=== PATIENT | female | born 2000 | race African-American/Black ===

== ENCOUNTER 2020-08-19 22:09 | Inpatient (IN) | payer OTHER, SELFPAY ==
--- NOTE | 2020-08-19 22:13 | ED.PSYCH ---
HPI - Psych General Chief Complaint: Psychiatric Symptoms Stated Complaint: ? crisis Time Seen by Provider: 08/19/20 22:13 Source: patient and EMS Mode of arrival: EMS Limitations: no limitations History of Present Illness MD complaint: suicidal ideation and feels depressed Onset (ago): week(s) Duration: constant History of same: Yes Relieving factors: none Exacerbating factors: none Context: significant life stressor Associated psychiatric symptoms: depression and suicidal ideation Associated symptoms: denies other symptoms Treatments prior to arrival: none If self harm: admits thoughts of self harm, has plan, has acted on plan and intentional overdose (took a handful of ES tylenol just [employer] did throw up some, mom and patient called 911 ) Related Data Allergies Allergy/AdvReac Type Severity Reaction Status Date / Time nut - unspecified [NUTS] Allergy Unknown SWELLING Unverified 04/12/20 19:02 Review of Systems Review of Systems: Constitutional : No Fever, No Chills ENT/Mouth : No Ear Pain, No Nasal Congestion, No sore throat Eyes: No Eye Pain, No Swelling, No Redness Cardiovascular : No Chest Pain, No SOB Respiratory : No Cough, No Sputum, No Dyspnea Gastrointestinal : No Nausea, No Vomiting, No Diarrhea, No Hematochezia, No Melena Genitourinary : No Dysuria, No Urinary Frequency, No Hematuria Musculoskeletal : No Myalgias Skin : No Skin Lesions, No rash Neuro : No Weakness, No Numbness, No Paresthesias, No Dizziness, No Headache Psych : positive Anxiety, positive Depression, positive SI no HI Heme/Lymph: No Lymphadenopathy Endocrine : No Polyuria, No Polydipsia All other systems reviewed and are negative [facility] Past Medical History Attestation statement: The following information was validated with the patient. Medical History Asthma Depression Social History Social History (Updated 08/19/20 @ 22:18 by Yolanda Braswell DO) Smoking Status: Never smoker Use of substances other than those prescribed or required for medical reasons: No Advance Directives: No Advance Directives Information Provided: No Physical Exam Vital Signs: Vital Signs: Last Vital Signs Temp 97.9 F 08/20/20 06:00 Pulse 80 08/20/20 06:00 Resp 16 08/20/20 06:00 BP 105/67 08/20/20 06:00 Pulse Ox 99 08/20/20 06:00 Body Mass Index 37.8 Appearance: Alert. Oriented X3. No acute distress. Flat affect Eyes: Pupils equal, round and reactive to light. ENT: Pharynx normal. Neck: Normal inspection. Neck supple. CVS: Normal heart rate and rhythm. Pulses normal. Respiratory: No respiratory distress. Breath sounds normal. Abdomen: Soft and nontender. Skin: Skin warm and dry. Normal skin color. Normal skin turgor. Extremities: No lower extremity edema. No calf ttp Neuro: Oriented X 3. No motor deficit. No sensory deficit. CN 2-12 intact Psych: + depresion, + SI Course Course Course Narrative: tylenol is under toxic range, RN had spoken to poison control - recommend 8 hr level, 6 am APAP and LFTs ordered LFTs fine but APAP in toxic range, will start on NAC protocol will need admission for NAC protocol I spoke to poison control and also her level is toxic on nomogram 2 hours prior to stopping protocol APAP level, LFTs, coags MDM - Psych MDM Narrative Medical decision making narrative: 20 yo female with depression, SI took a handful of ES tylenol prior to arrival, did drink milk and vomited, will need labs, tylenol x 2 next test at 2am, charcoal ordered, onced medically cleared (suspect low toxicity from ingestion was a handful and one time ingestion) will consult N after repeat APAP Lab Data Result diagrams: 08/19/20 22:54 08/19/20 22:54 Labs: Lab Results 08/19/20 08/19/20 08/19/20 Range/Units 22:54 22:54 22:54 WBC 11.0 H (4.8-10.8) X10*3/uL RBC 4.45 (4.20-5.50) X10*6/uL Hgb 12.9 (12.0-16.0) g/dl Hct 40.9 (37-47) % MCV 91.9 (80-98) fL MCH 29.0 (27.0-33.0) pg MCHC 31.5 (31.0-35.0) g/dl RDW 13.3 (11.0-16.0) % Plt Count 312 (160-400) X10*3/uL MPV 9.9 (9.4-12.3) fL Immature Gran % (Auto) 0.3 (0.0-0.4) % Neut % (Auto) 58.2 (45-73) % Lymph % (Auto) 30.8 (20-40) % [place] % (Auto) 7.6 (2-11) % Eos % (Auto) 2.7 (0-4) % Baso % (Auto) 0.4 (0-2) % Lymph # (Auto) 3.4 (1.2-4.9) X10*3/uL [place] # (Auto) 0.8 (0.1-1.2) X10*3/uL Eos # (Auto) 0.3 (0.0-0.4) X10*3/uL Baso # (Auto) 0.0 (0.0-0.2) X10*3/uL Abs Immat Gran (auto) 0.03 (0.00-0.03) X10*3/uL Absolute Neuts (auto) 6.4 (2.0-8.3) X10*3/uL Absolute Nucleated RBC 0.000 (0.0-0.012) X10*3/uL Nucleated RBC % (auto) 0.0 (0.0-0.2) /100WBC Hold Blue Top SEE NOTE Sodium 143 (135-145) mmol/L Potassium 3.7 (3.3-5.1) mmol/l Chloride 108 (96-108) mmol/L Carbon Dioxide 25 (22-29) mmol/L Anion Gap 14 (12-20) BUN 16 (9-16) mg/dL Creatinine 0.79 (0.5-1.4) mg/dL Estim Creat Clear Calc 129.3 Estimated GFR > 60 Random Glucose 68 (60-115) mg/dL Calcium 8.7 (8.4-10.2) mg/dL Magnesium 2.2 (1.6-2.6) mg/dL Total Bilirubin 0.2 (0.0-1.0) mg/dL Direct Bilirubin < 0.2 (0.0-0.5) mg/dL AST 18 (5-31) U/L ALT 12 (0-31) U/L Alkaline Phosphatase 79 (39-117) U/L Total Protein 7.2 (6.5-8.0) g/dL Albumin 4.4 (3.5-5.0) g/dL Urine Test (NEGATIVE) Salicylates < 5.0 L (15-30) mg/dL Urine Opiates Screen (Not Detect) Acetaminophen 1 (<30) mcg/mL Ur Barbiturates Screen (Not Detect) Ur Phencyclidine Scrn (Not Detect) Ur Amphetamines Screen (Not Detect) U Benzodiazepines Scrn (Not Detect) Urine Cocaine Screen (Not Detect) U Marijuana (THC) Screen (Not Detect) COVID-19 ([facility]) (Negative) COVID-19 Clin Com 08/19/20 08/19/20 08/19/20 Range/Units 22:54 22:54 22:54 WBC (4.8-10.8) X10*3/uL RBC (4.20-5.50) X10*6/uL Hgb (12.0-16.0) g/dl Hct (37-47) % MCV (80-98) fL MCH (27.0-33.0) pg MCHC (31.0-35.0) g/dl RDW (11.0-16.0) % Plt Count (160-400) X10*3/uL MPV (9.4-12.3) fL Immature Gran % (Auto) (0.0-0.4) % Neut % (Auto) (45-73) % Lymph % (Auto) (20-40) % [place] % (Auto) (2-11) % Eos % (Auto) (0-4) % Baso % (Auto) (0-2) % Lymph # (Auto) (1.2-4.9) X10*3/uL [place] # (Auto) (0.1-1.2) X10*3/uL Eos # (Auto) (0.0-0.4) X10*3/uL Baso # (Auto) (0.0-0.2) X10*3/uL Abs Immat Gran (auto) (0.00-0.03) X10*3/uL Absolute Neuts (auto) (2.0-8.3) X10*3/uL Absolute Nucleated RBC (0.0-0.012) X10*3/uL Nucleated RBC % (auto) (0.0-0.2) /100WBC Hold Blue Top Sodium (135-145) mmol/L Potassium (3.3-5.1) mmol/l Chloride (96-108) mmol/L Carbon Dioxide (22-29) mmol/L Anion Gap (12-20) BUN (9-16) mg/dL Creatinine (0.5-1.4) mg/dL Estim Creat Clear Calc Estimated GFR Random Glucose (60-115) mg/dL Calcium (8.4-10.2) mg/dL Magnesium (1.6-2.6) mg/dL Total Bilirubin (0.0-1.0) mg/dL Direct Bilirubin (0.0-0.5) mg/dL AST (5-31) U/L ALT (0-31) U/L Alkaline Phosphatase (39-117) U/L Total Protein (6.5-8.0) g/dL Albumin (3.5-5.0) g/dL Urine Test NEGATIVE (NEGATIVE) Salicylates (15-30) mg/dL Urine Opiates Screen Not Detected (Not Detect) Acetaminophen (<30) mcg/mL Ur Barbiturates Screen Not Detected (Not Detect) Ur Phencyclidine Scrn Not Detected (Not Detect) Ur Amphetamines Screen Not Detected (Not Detect) U Benzodiazepines Scrn Not Detected (Not Detect) Urine Cocaine Screen Not Detected (Not Detect) U Marijuana (THC) Screen Not Detected (Not Detect) COVID-19 ([facility]) Negative (Negative) COVID-19 Clin Com See Note 08/20/20 08/20/20 Range/Units 02:03 06:10 WBC (4.8-10.8) X10*3/uL RBC (4.20-5.50) X10*6/uL Hgb (12.0-16.0) g/dl Hct (37-47) % MCV (80-98) fL MCH (27.0-33.0) pg MCHC (31.0-35.0) g/dl RDW (11.0-16.0) % Plt Count (160-400) X10*3/uL MPV (9.4-12.3) fL Immature Gran % (Auto) (0.0-0.4) % Neut % (Auto) (45-73) % Lymph % (Auto) (20-40) % [place] % (Auto) (2-11) % Eos % (Auto) (0-4) % Baso % (Auto) (0-2) % Lymph # (Auto) (1.2-4.9) X10*3/uL [place] # (Auto) (0.1-1.2) X10*3/uL Eos # (Auto) (0.0-0.4) X10*3/uL Baso # (Auto) (0.0-0.2) X10*3/uL Abs Immat Gran (auto) (0.00-0.03) X10*3/uL Absolute Neuts (auto) (2.0-8.3) X10*3/uL Absolute Nucleated RBC (0.0-0.012) X10*3/uL Nucleated RBC % (auto) (0.0-0.2) /100WBC Hold Blue Top Sodium (135-145) mmol/L Potassium (3.3-5.1) mmol/l Chloride (96-108) mmol/L Carbon Dioxide (22-29) mmol/L Anion Gap (12-20) BUN (9-16) mg/dL Creatinine (0.5-1.4) mg/dL Estim Creat Clear Calc Estimated GFR Random Glucose (60-115) mg/dL Calcium (8.4-10.2) mg/dL Magnesium (1.6-2.6) mg/dL Total Bilirubin 0.4 (0.0-1.0) mg/dL Direct Bilirubin 0.2 (0.0-0.5) mg/dL AST 16 (5-31) U/L ALT 12 (0-31) U/L Alkaline Phosphatase 66 (39-117) U/L Total Protein 6.0 L (6.5-8.0) g/dL Albumin 3.7 (3.5-5.0) g/dL Urine Test (NEGATIVE) Salicylates < 5.0 L (15-30) mg/dL Urine Opiates Screen (Not Detect) Acetaminophen 100 H* 90 H* (<30) mcg/mL Ur Barbiturates Screen (Not Detect) Ur Phencyclidine Scrn (Not Detect) Ur Amphetamines Screen (Not Detect) U Benzodiazepines Scrn (Not Detect) Urine Cocaine Screen (Not Detect) U Marijuana (THC) Screen (Not Detect) COVID-19 ([facility]) (Negative) COVID-19 Clin Com Discharge Plan Discharge Clinical Impression: Depression Qualifiers: Depression Type: other depression Qualified Code(s): F32.89 - Other specified depressive episodes Overdose by acetaminophen Qualifiers: Encounter type: initial encounter Injury intent: intentional self-harm Qualified Code(s): T39.1X2A - Poisoning by 4-Aminophenol derivatives, intentional self-harm, initial encounter Patient Disposition: Admitted As Inpatient
[2020-08-19 22:20] VITALS: BP 121/76; PULSE 88; RESP 18; TEMP 36.6; O2SAT 97
[2020-08-19 22:31] VITALS: BP 121/76; PULSE 90; RESP 16; TEMP 35.9; O2SAT 100; BMI 37.8
[2020-08-19] MEDS: Activated charcoaL 50 GM/240 ML ORAL.SUSP PO (22:34)
[2020-08-19 23:04] LABS: Basophils Percent Auto 0.4 % (0-2); Eosinophils Absolute Auto 0.3 X10*3/uL (0.0-0.4); Eosinophils Percent Auto 2.7 % (0-4); Hematocrit 40.9 % (37-47); Hemoglobin 12.9 g/dl (12.0-16.0); Imm Gran Abs Auto 0.03 X10*3/uL (0.00-0.03); Imm Gran Pct Auto 0.3 % (0.0-0.4); Lymphocytes Absolute Auto 3.4 X10*3/uL (1.2-4.9); Lymphocytes Percent Auto 30.8 % (20-40); Mean Corpuscular HGB Conc 31.5 g/dl (31.0-35.0); Mean Corpuscular Volume 91.9 fL (80-98); Mean Platelet Volume 9.9 fL (9.4-12.3); Monocytes Absolute Auto 0.8 X10*3/uL (0.1-1.2); Monocytes Percent Auto 7.6 % (2-11); Neutrophils Absolute Auto 6.4 X10*3/uL (2.0-8.3); Neutrophils Percent Auto 58.2 % (45-73); Platelet Count 312 X10*3/uL (160-400); Red Blood Count 4.45 X10*6/uL (4.20-5.50); Red Cell Distribution Width 13.3 % (11.0-16.0)
[2020-08-19 23:05] LABS: MANUAL DIFF FLAG NO
[2020-08-19 23:08] LABS: Urine Pregnancy NEGATIVE (NEGATIVE)
[2020-08-19 23:09] LABS: UPreg QC Valid YES
[2020-08-19 23:18] LABS: COVID-19 Test Negative (Negative); IDNOW Serial# 9DD0AD1C
[2020-08-19 23:35] LABS: Acetaminophen LAB 1 mcg/mL (<30); Alanine Aminotransferase 12 U/L (0-31); Albumin Level 4.4 g/dL (3.5-5.0); Alkaline Phosphatase 79 U/L (39-117); Amphetamine Screen Urine Not Detected (Not Detect); Anion Gap 14 (12-20); Aspartate Amino Transferase 18 U/L (5-31); Barbiturates, Urine Not Detected (Not Detect); Benzodiazepines Screen Urine Not Detected (Not Detect); Bilirubin Direct < 0.2 mg/dL (0.0-0.5); Bilirubin Total 0.2 mg/dL (0.0-1.0); Blood Urea Nitrogen 16 mg/dL (9-16); Calcium 8.7 mg/dL (8.4-10.2); Cannabinoid Screen Urine Not Detected (Not Detect); Carbon Dioxide 25 mmol/L (22-29); Chloride 108 mmol/L (96-108); Cocaine Screen Urine Not Detected (Not Detect); Creatinine Clr Calc Pharmacy 129.3; Estimated Glomerular Filt Rate > 60; Glucose Random 68 mg/dL (60-115); Magnesium 2.2 mg/dL (1.6-2.6); Opiate Screen Urine Not Detected (Not Detect); Phencyclidine Screen Urine Not Detected (Not Detect); Potassium 3.7 mmol/l (3.3-5.1); Salicylate < 5.0 mg/dL (15-30); Sodium 143 mmol/L (135-145); Total Protein 7.2 g/dL (6.5-8.0)
[2020-08-20] VITALS (9 sets, daily range): BP systolic 100–124; BP diastolic 50–75; PULSE 77–90; RESP 16–20; TEMP 36.1–36.9; O2SAT 97–99
[2020-08-20 02:56] LABS: Acetaminophen LAB 100 mcg/mL (<30); Salicylate < 5.0 mg/dL (15-30)
--- NOTE | 2020-08-20 02:59 | PC.NURSE ---
POISION CONTROL UPDATED ON INCREASED LEVEL PER POISION CONTROL, WHILE NONTOXIC-REDRAW LEVEL AT 8HR JAIMIE. TIME OF INGESTION CONFIRMED. IF IT DECREASES PATIENT CAN BECOME MEDICALLY CLEAR.
[2020-08-20 06:40] LABS: Acetaminophen LAB 90 mcg/mL (<30); Alanine Aminotransferase 12 U/L (0-31); Albumin Level 3.7 g/dL (3.5-5.0); Alkaline Phosphatase 66 U/L (39-117); Aspartate Amino Transferase 16 U/L (5-31); Bilirubin Direct 0.2 mg/dL (0.0-0.5); Bilirubin Total 0.4 mg/dL (0.0-1.0)
--- NOTE | 2020-08-20 06:43 | PC.NURSE ---
SPOKE TO POISON CONTROL. OK TO MEDICALLY CLEAR.
--- NOTE | 2020-08-20 07:19 | PC.NURSE ---
update given to mother with patient permission.
--- NOTE | 2020-08-20 07:51 | MHC.CARE ---
Pt will require crisis evaluation when medically stable.
--- NOTE | 2020-08-20 08:25 | PC.NURSE ---
MULTIPLE DELAYS IN GETTING MUCOMYST FROM PHARM. STILL AWAITING LOADING DOSE.
[2020-08-20] MEDS: Acetylcysteine 15,000 MG in Dextrose 5 % 200 ML 275 MG IV (08:33)
--- NOTE | 2020-08-20 08:52 | PC.NURSE ---
MUCOMYST UP AND INFUSING PER ORDERS. PT CALM AND COOPERATIVE. SITTER AT BEDSIDE. PT OFFERS NO COMPLAINTS
--- NOTE | 2020-08-20 10:06 | PC.NURSE ---
PT VERY ITCHY AND WITH COUGH AND N/V AFTER 1ST DOSE OF MUCOMYST. MD AWARE. ORDERED BENADRYL AND ZOFRAN AND TO HOLD MUCOMYST OR NOW. VITALS UPDATED
[2020-08-20] MEDS: diphenhydrAMINE HCL 50 MG/ML VIAL 25 MG IVPUSH ×2 (10:13→12:15)
[2020-08-20] MEDS: ondansetron HCL 4 MG/2 ML VIAL IVPUSH (10:13)
--- NOTE | 2020-08-20 10:39 | P.HPHOSP_ITS ---
History of Present Illness Date of Service: 08/20/20 Chief Complaint: overdose This is a 20 year old female with history of mild asthma and depression who presented after toxic ingestion. She reports taking a handful of extra strength tylenol just prior to arrival. She and her mother called 911. Following ingestio n she vomited a small amount, but there were no tylenol capsules or pill fragments that she could see. Initial tylenol level was 100, other labs unremarkable. Repeat tylenol level 90 and acetylcystine protocol per poison control recommendation. Repeat LFTs also normal. Following administration of 1 st bag of acetylcysteine patient began experiencing itching and irritation to her face as well as vomiting. She received a dose of IV Benadryl and Zofran. Poison Control was contacted. This is described as a common reaction with loading dose. Poison Control recommended holding 2nd infusion for 1 hour and then initiating at lower rate. Patient will be admitted for further management of intentional Tylenol overdose. Review of Systems Review of Systems: Yes all other systems are reviewed and are negative Constitutional: Constitutional: Denies chills and Denies fever(s) Cardiovascular: Cardiovascular: Denies chest pain Respiratory: Respiratory: Denies cough Gastrointestinal: Gastrointestinal: Denies abdominal pain, Reports nausea and Reports vomiting Allergic/Immunologic: Comments: irritation/itching skin on face PMFSH Medical History Asthma Depression Functional capacity: independent ambulation Pertinent family history: diabetes runs in the family Surgical History (Updated 08/20/20 @ 10:55 by BECKI Cota) Hx of tonsillectomy Social History (Updated 08/20/20 @ 10:55 by BECKI Cota) Alcohol intake: never Smoking Status: Never smoker Use of substances other than those prescribed or required for medical reasons: No Advance Directives: No Advance Directives Information Provided: No Meds Allergies Allergy/AdvReac Type Severity Reaction Status Date / Time nut - unspecified [NUTS] Allergy Unknown SWELLING Verified 08/20/20 10:11 ibuprofen [From Motrin] Allergy Chest Pain Verified 08/20/20 10:12 Home Medications Medication Instructions Recorded Confirmed Type cetirizine 10 mg PO DAILY 08/20/20 08/20/20 History Physical Exam Vital Signs and Narrative: Vital Signs: Last Vital Signs Temp 97.9 F 08/20/20 06:00 Pulse 90 08/20/20 10:07 Resp 18 08/20/20 10:07 BP 124/68 08/20/20 10:07 Pulse Ox 99 08/20/20 06:00 Body Mass Index 37.8 Const: Nutritional Appearance: well nourished Orientation/consciousness: patient oriented x3 HENMT: Head: Yes normocephalic and Yes atraumatic Eyes: Sclerae: sclerae normal Chest: Chest palpation & inspection: normal inspection of the chest Resp: Effort & Inspection: normal respiratory effort and no respiratory distress Auscultation: clear to auscultation bilaterally Cardio: Rate: regular rate Rhythm: regular rhythm GI: Palpation (GI): Soft to palpation and nontender Skin: Other: redness of skin on face, no hives Neuro: General: patient oriented x3 Cranial nerves: Yes CN's II-XII intact bilaterally and Yes Bilaterally intact EOM present Extrem: General: Yes normal to inspection Results Labs CBC and Chem 7: 08/19/20 22:54 08/19/20 22:54 Labs: Laboratory Results - last 24 hr 08/19/20 08/19/20 08/19/20 22:54 22:54 22:54 MCV 91.9 MCH 29.0 MCHC 31.5 RDW 13.3 Plt Count 312 MPV 9.9 Immature Gran % (Auto) 0.3 Neut % (Auto) 58.2 Lymph % (Auto) 30.8 [place] % (Auto) 7.6 Eos % (Auto) 2.7 Baso % (Auto) 0.4 Lymph # (Auto) 3.4 [place] # (Auto) 0.8 Eos # (Auto) 0.3 Baso # (Auto) 0.0 Abs Immat Gran (auto) 0.03 Absolute Neuts (auto) 6.4 Absolute Nucleated RBC 0.000 Nucleated RBC % (auto) 0.0 Hold Blue Top SEE NOTE Anion Gap 14 Estim Creat Clear Calc 129.3 Estimated GFR > 60 Random Glucose 68 Calcium 8.7 Magnesium 2.2 Total Bilirubin 0.2 Direct Bilirubin < 0.2 AST 18 ALT 12 Alkaline Phosphatase 79 Total Protein 7.2 Albumin 4.4 Urine Test Salicylates < 5.0 L Urine Opiates Screen Acetaminophen 1 Ur Barbiturates Screen Ur Phencyclidine Scrn Ur Amphetamines Screen U Benzodiazepines Scrn Urine Cocaine Screen U Marijuana (THC) Screen COVID-19 ([facility]) COVID-19 [employer] 08/19/20 08/19/20 08/19/20 22:54 22:54 22:54 MCV MCH MCHC RDW Plt Count MPV Immature Gran % (Auto) Neut % (Auto) Lymph % (Auto) [place] % (Auto) Eos % (Auto) Baso % (Auto) Lymph # (Auto) [place] # (Auto) Eos # (Auto) Baso # (Auto) Abs Immat Gran (auto) Absolute Neuts (auto) Absolute Nucleated RBC Nucleated RBC % (auto) Hold Blue Top Anion Gap Estim Creat Clear Calc Estimated GFR Random Glucose Calcium Magnesium Total Bilirubin Direct Bilirubin AST ALT Alkaline Phosphatase Total Protein Albumin Urine Test NEGATIVE Salicylates Urine Opiates Screen Not Detected Acetaminophen Ur Barbiturates Screen Not Detected Ur Phencyclidine Scrn Not Detected Ur Amphetamines Screen Not Detected U Benzodiazepines Scrn Not Detected Urine Cocaine Screen Not Detected U Marijuana (THC) Screen Not Detected COVID-19 ([facility]) Negative COVID-[employer] See Note 08/20/20 08/20/20 02:03 06:10 MCV MCH MCHC RDW Plt Count MPV Immature Gran % (Auto) Neut % (Auto) Lymph % (Auto) [place] % (Auto) Eos % (Auto) Baso % (Auto) Lymph # (Auto) [place] # (Auto) Eos # (Auto) Baso # (Auto) Abs Immat Gran (auto) Absolute Neuts (auto) Absolute Nucleated RBC Nucleated RBC % (auto) Hold Blue Top Anion Gap Estim Creat Clear Calc Estimated GFR Random Glucose Calcium Magnesium Total Bilirubin 0.4 Direct Bilirubin 0.2 AST 16 ALT 12 Alkaline Phosphatase 66 Total Protein 6.0 L Albumin 3.7 Urine Test Salicylates < 5.0 L Urine Opiates Screen Acetaminophen 100 H* 90 H* Ur Barbiturates Screen Ur Phencyclidine Scrn Ur Amphetamines Screen U Benzodiazepines Scrn Urine Cocaine Screen U Marijuana (THC) Screen COVID-19 ([facility]) COVID-[employer] Assessment and Plan (1) Overdose by acetaminophen: Qualifiers: Encounter type: initial encounter Injury intent: intentional self-harm Qualified Code(s): T39.1X2A - Poisoning by 4-Aminophenol derivatives, intentional self-harm, initial encounter Status: Acute (2) Depression: Qualifiers: Depression Type: other depression Qualified Code(s): F32.89 - Other specified depressive episodes Status: Acute Is a 20-year-old female with history of depression who presents following intentional overdose with Tylenol Intentional Tylenol overdose Tylenol level in toxic range LFTs are within normal limits Had itching/facial rash/vomiting after receiving loading dose of acetylcysteine. Poison control contacted and recommended holding second dose until after benadryl and restart second bag at lower rate (over 8 hours rather than 4 hours) acetylcystein protocol -follow LFTs, tylenol level, INR -sitter -BHN eval when medically cleared DVT ppx - low risk - early ambulation, mechanical devices code status - full THis case was discussed with Dr. Lama
[2020-08-20] MEDS: Acetylcysteine 5,000 MG in Dextrose 5 % 500 ML 131.25 MG IV (12:15)
--- NOTE | 2020-08-20 12:30 | PC.NURSE ---
PT MEDICATED WITH BENADRYL ORDERED, ACETYLCYSTEINE GTT HUNG TO BE ADMINISTERED OVER 8 HRS PER V.O. FROM MD MALCOLM
--- NOTE | 2020-08-20 12:35 | PM.GICN ---
History of Present Illness Data of Consult Service Date: 08/20/20 Requesting physician: Simona Lama Primary Care Provider: [facility] HPI 20 YF presented to [facility] last night after suicidal ingestion of ES acetaminophen: 20 yo female with depression, SI took a handful of ES tylenol prior to arrival, did drink milk and vomited, will need labs, tylenol x 2 next test at 2am, charcoal ordered, onced medically cleared (suspect low toxicity from ingestion was a handful and one time ingestion) will consult N after repeat APAP Pt reports taking a handful (does not know how many pills) of acetaminophen 500 mg last evening after 10 pm. Regretted taking it immediately and was brought to [facility]. LFTs were normal and acetaminiphen level was 100 after 4 hrs of ingestion. FU acetaminiphen level after additional 4 hrs was 90. Treated with activated charcoal followed by N acetyl cysteine Patient complains of nausea and vomiting and denies heartburn, dysphagia, or abdominal pain. Complains of chronic intermittent constipation and denies diarrhea, black stools or rectal bleeding. Patient denies major cardiac or pulmonary problems, loud snoring or sleep apnea Patient denies known family history of liver disease, colon polyps, colon cancer or other GI malignancies. Review of Systems Constitutional: Constitutional: Reports difficulty sleeping, Denies fever(s), Reports headache(s) and Denies weight loss Eyes: Eyes: Denies eye discharge, Reports dry eyes and Denies irritation ENT: Reports Normal hearing present, Denies dysphagia, Denies dizziness, Reports dry mouth and Reports headache(s) Cardiovascular: Cardiovascular: Reports chest pain, Denies leg edema, Reports dyspnea ( at rest), Reports dyspnea on exertion and Reports other ( palpitations) Respiratory: Respiratory: Denies cough, Reports dyspnea ( at rest) and Reports dyspnea on exertion Gastrointestinal: Gastrointestinal: Reports abdominal pain, Denies change in bowel habits, Denies dysphagia, Denies heartburn, Reports nausea and Reports vomiting Genitourinary: Genitourinary: Denies difficulty voiding, Denies dysuria and Reports other ( urinary frequency) Musculoskeletal: Musculoskeletal: Denies back pain and Reports arthralgias ( arthritis) Integumentary/Breasts: Skin/Breast: Denies pruritus, Reports rash, Denies jaundice and Reports other (Alopecia, photosensitivity) Neurologic: Reports Normal hearing present, Denies Abnormal speech present, Denies dizziness, Reports headache(s) and Denies seizure-like activity Psychiatric: Psychiatric: Reports anxiety, Reports depression and Denies panic attacks Endocrine: Endocrine: Denies cold intolerance, Denies flushing and Denies heat intolerance PMFSH Past Medical History Medical History Asthma Depression Functional capacity: independent ambulation Surgical History Surgical History Hx of tonsillectomy Social History Social History (Updated 08/20/20 @ 10:55 by BECKI Cota) Household Members: Family Housing: Apartment Do you presently have visiting nurse or other home services: No Alcohol intake: never Smoking Status: Never smoker Use of substances other than those prescribed or required for medical reasons: No Have you been hit, kicked, punched, or otherwise hurt by someone within the past year? If so, by whom?: No Do you feel safe in your current relationship?: No Current Relationship Is there a partner from a previous relationship who is making you feel unsafe now?: No Are you made to feel afraid or neglected: No Advance Directives: No Advance Directives Information Provided: No Do you have thoughts of harming others: None Do you have a plan to hurt others: No Plan Recently lost weight without trying: No service: No Current occupational status: employed Meds Allergies Allergy/AdvReac Type Severity Reaction Status Date / Time nut - unspecified [NUTS] Allergy Unknown SWELLING Verified 08/20/20 10:11 ibuprofen [From Motrin] Allergy Chest Pain Verified 08/20/20 10:12 Home Medications Medication Instructions Recorded Confirmed Type cetirizine 10 mg PO DAILY 08/20/20 08/20/20 History Physical Exam Vital Signs: Vital Signs: Last Vital Signs Temp 97.9 F 08/20/20 06:00 Pulse 84 08/20/20 11:20 Resp 16 08/20/20 11:20 BP 113/66 08/20/20 11:20 Pulse Ox 98 08/20/20 11:20 Body Mass Index 37.8 Const: General: no acute distress and ill appearing Nutritional Appearance: average body habitus Orientation/consciousness: patient oriented x3 Limitations: no limitations HENMT: Head: Yes normal to inspection Ears: hearing grossly normal bilaterally Mouth: Normal oral and palatal mucosa present Eyes: Sclerae: sclerae normal Pupils: Equal, round and reactive pupils present Neck: Neck: Yes normal visual inspection Chest: Chest palpation & inspection: normal inspection of the chest Resp: Effort & Inspection: normal respiratory effort Auscultation: clear to auscultation bilaterally Cardio: Palpation: normal PMI Rate: regular rate Rhythm: regular rhythm Heart sounds: S1 normal heart sound present, S2 normal heart sound present and no murmurs GI: Palpation (GI): Soft to palpation, nontender and No hepatosplenomegaly present Auscultation: normal bowel sounds Rectal Exam - Female: deferred Skin: General skin exam: no rashes or lesions noted Neuro: General: patient oriented x3, gait normal and moves all extremities Cranial nerves: Yes Equal, round and reactive pupils present and Yes Normal hearing present Speech: No Abnormal speech present Psych: Appearance: grossly normal Mental Status: mental status grossly normal Results Labs CBC & Chem 7: 08/19/20 22:54 08/21/20 10:17 Labs: Short CBC 08/19/20 Range/Units 22:54 WBC 11.0 H (4.8-10.8) X10*3/uL Hgb 12.9 (12.0-16.0) g/dl Hct 40.9 (37-47) % Plt Count 312 (160-400) X10*3/uL BMP 08/19/20 22:54 Sodium 143 Potassium 3.7 Chloride 108 Carbon Dioxide 25 BUN 16 Creatinine 0.79 Calcium 8.7 Liver Function 08/19/20 08/20/20 Range/Units 22:54 06:10 Total Bilirubin 0.2 0.4 (0.0-1.0) mg/dL Direct Bilirubin < 0.2 0.2 (0.0-0.5) mg/dL AST 18 16 (5-31) U/L ALT 12 12 (0-31) U/L Alkaline Phosphatase 79 66 (39-117) U/L Albumin 4.4 3.7 (3.5-5.0) g/dL Assessment and Plan (1) Overdose by acetaminophen: Qualifiers: Encounter type: initial encounter Injury intent: intentional self-harm Qualified Code(s): T39.1X2A - Poisoning by 4-Aminophenol derivatives, intentional self-harm, initial encounter Status: Acute 20 YF with asthma and depression admitted to [facility] with suicide attempt with overdose of ES acetaminophen (Pt states she took a handfull of tablets and unable to recall the actual number of pills she took) Luckily she regretted taking the medication immediately and came to [facility]. LFTs were normal and acetaminiphen level was 100 after 4 hrs of ingestion. FU acetaminiphen level after additional 4 hrs was 90. Treated with activated charcoal followed by N acetylcysteine She is at low risk for hepatic toxicity since she received N-acetylcystine within 8 hours of acetaminophen overdose when her LFTs were normal. RECOMMENDATIONS: 1. Continue supportive management with IV Fluids and acetyl cysteine as planned. 2. Monitor LFTs daily 3. Check ALT prior to stopping N-acetylcysteine and advise to continue treatment if the ALT is abnormal, as some patients will develop liver injury during the treatment period. From UTD: Serious hepatotoxicity is uncommon and extremely rare if N-acetylcysteine is administered within eight hours following acetaminophen overdose. The tineo to effective treatment is to start therapy before the onset of liver injury, which can be defined biochemically by an elevation of the alanine aminotransferase (ALT) concentration. This is accomplished by initiating treatment within eight hours of an acute ingestion. Although some controversy persists regarding mechanism, most toxicologists believe N-acetylcysteine prevents acetaminophen-induced hepatic injury by restoring hepatic glutathione stores. We suggest the following approach for three common clinical scenarios based upon the type of ingestion and the clinical status of the patient: ?Acute ingestion with treatment started when ALT is NOT elevated or within eight hours of ingestion ? Administer IV or oral N-acetylcysteine for a minimum of 20 hours (some authors suggest longer treatment when the oral route is used). Check the serum ALT and acetaminophen concentrations as the patient is approaching the end of the protocol (approximately 18 hours after starting treatment). If the serum ALT is elevated OR if the serum acetaminophen concentration is detectable, continue treatment with N-acetylcysteine at 6.25 mg/kg per hour (for IV protocol) or 70 mg/kg every four hours (for oral protocol) and obtain a serum acetaminophen concentration and ALT measurement every 12 hours thereafter. If the ALT is elevated, also measure the international normalized ratio (INR). Treatment can be stopped when the serum acetaminophen concentration is undetectable, the ALT is clearly decreasing or in the normal range, and the INR is less than two. There is no uniformly accepted definition of clearly decreasing. One conservative definition is a decrease of more than 50 percent from the peak measurement or three consecutive decreasing values, all below 1000 international units/L. Monitoring during treatment ? If N-acetylcysteine therapy is initiated within eight hours of ingestion (ie, before ALT elevation), one major guideline recommends no additional testing at the end of treatment [46]. However, we suggest measuring the ALT prior to stopping N-acetylcysteine and continuing treatment if the ALT is abnormal, as some patients will develop liver injury during the treatment period. We also suggest remeasuring the serum acetaminophen concentration prior to stopping N-acetylcysteine to verify that the level is undetectable. Our approach is based upon a small number of case reports in which patients had toxic acetaminophen concentrations at the end of the 20-hour IV treatment protocol [20,41,42]. Other guidelines recommend measuring serum acetaminophen, INR, serum bicarbonate, and serum creatinine at the end of treatment and continuing treatment if any value is abnormal [47]. The ALT is used to monitor the degree of hepatic injury and the other tests are used to determine the need for liver transplant [48]. A full discussion of the criteria for liver transplantation is found separately. (See Acute liver failure in adults: Management and prognosis .) We suggest measuring the ALT and INR every 12 hours for any patient who develops ALT elevation. More frequent testing does not allow enough time to detect clinically meaningful trends. If the patient develops an ALT greater than 1000 international unit/L, coagulopathy (ie, INR >1.5), or encephalopathy, then the serum bicarbonate, glucose, and creatinine should also be measured every 12 hours. Closer monitoring (eg, intensive care unit [ICU] admission, field project manager) may be indicated based upon the patient's clinical condition if a significant coingestion is known or suspected or other problems arise. Side effects ? Both therapeutic serum concentrations of N-acetylcysteine and high concentrations of acetaminophen can elevate the INR. These elevations are usually mild (INR should not be greater than 1.5), occur between 4 and 20 hours post ingestion, and resolve as treatment is continued [49].
--- NOTE | 2020-08-20 13:23 | PC.NURSE ---
PT APPEARS AT BASELINE, DENIES ANY DISCOMFORT. SLEEPING ATTHIS TIME.
--- NOTE | 2020-08-20 13:58 | PC.NURSE ---
PT CONFIRMED ONLY RX TAKEN AT HOME IS CETIRIZINE.
--- NOTE | 2020-08-20 14:42 | MHC.CM.PN ---
pt lives c a parent/ mother in her home. 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 pt's mother can help her should she need it, this will include a ride home at dc. pt denies the need for vna at dc. pt will have a crisis consult and may benefit from inpt psych. dc plan is inpt psych vs home c out pt psych or not. cm to cont. to follow.
--- NOTE | 2020-08-20 15:57 | PC.NURSE ---
per poison control, ok to administer 3rd dose of acetylcysteine at regular rate
--- NOTE | 2020-08-20 17:00 | PC.NURSE ---
per poison control, ok for APAP level to remain to be redrawn at 0500h tomorrow morning. MD Lama aware.
--- NOTE | 2020-08-20 17:17 | PM.EVENT ---
Event Note Date of Service: 08/21/20 Event Note: This patient is seen and examined with APC. Patient being admitted for Tylenol overdose Lab imaging: LFTs seems normal,also renal function Physical exam: eyes: no sclera icterus Cvs: rrr, [id number] , no murmur res: clear to auscultation ,no rhonchii or wheezing abd: no rebound or guarding ,nt, bs present. ext pulses present , no cyanosis neuro: axo3 , nonfocal. Physical exam and assessment and plan coordinated in APCs note, Agree with the plan in addition: Will continue as still N acetylcystene Monitor BMP and INR in a.m..
[2020-08-20] MEDS: 0.9 % Sodium Chloride Flush 3 ML SYRINGE IVFLUSH (17:59)
[2020-08-20 18:17] LABS: INTERNATIONAL NORM RATIO 1.3 (0.9-1.1); Prothrombin Time 15.3 SEC (10.8-13.0)
[2020-08-20] MEDS: diphenhydrAMINE HCL 25 MG TABLET PO (19:32)
[2020-08-20] MEDS: Acetylcysteine 10,000 MG in Dextrose 5 % 1,000 ML 65.63 MG IV (20:21)
--- NOTE | 2020-08-20 20:35 | PC.NURSE ---
16 hr Acetylcysteine gtt started, PO Benadry given half hour prior
--- NOTE | 2020-08-20 23:10 | PC.NURSE ---
Report taken from Mandi, mynor RN resuming care. Pt found sitting upright in bed, awake and alert, requesting to go to the bathroom. Pt ambulating to the bathroom with a egan/steady gait, denies pain/discomfort at this time. Pt requesting food/drink. Acetylcysteine infusing per MAR. VSS. Continue to monitor.
[2020-08-21] VITALS (8 sets, daily range): BP systolic 106–139; BP diastolic 66–100; PULSE 79–96; RESP 16–20; TEMP 36.7–37.2; O2SAT 94–100; BMI 38.5
[2020-08-21] MEDS: 0.9 % Sodium Chloride Flush 3 ML SYRINGE IVFLUSH ×3 (00:13→12:19)
--- NOTE | 2020-08-21 04:12 | PC.NURSE ---
Pt reporting pain to right shoulder, radiating down arm to right hand. Pt reports having this pain before, states she works at [employer] and regularly lifts heavy things. Pt provided with an ice pack, assisted into POC. Sitter at bedside. Continue to monitor.
[2020-08-21 10:40] LABS: INTERNATIONAL NORM RATIO 1.4 (0.9-1.1); Prothrombin Time 16.2 SEC (10.8-13.0)
[2020-08-21 10:59] LABS: Acetaminophen LAB < 1 mcg/mL (<30); Alanine Aminotransferase 11 U/L (0-31); Albumin Level 3.7 g/dL (3.5-5.0); Alkaline Phosphatase 66 U/L (39-117); Anion Gap 11 (12-20); Aspartate Amino Transferase 16 U/L (5-31); Bilirubin Direct < 0.2 mg/dL (0.0-0.5); Bilirubin Total 0.5 mg/dL (0.0-1.0); Blood Urea Nitrogen 8 mg/dL (9-16); Calcium 8.4 mg/dL (8.4-10.2); Carbon Dioxide 24 mmol/L (22-29); Chloride 107 mmol/L (96-108); Creatinine Clr Calc Pharmacy 173.1; Estimated Glomerular Filt Rate > 60; Glucose Random 92 mg/dL (60-115); Potassium 3.8 mmol/l (3.3-5.1); Sodium 138 mmol/L (135-145); Total Protein 6.2 g/dL (6.5-8.0)
--- NOTE | 2020-08-21 12:16 | PC.NURSE ---
Addendum entered by Sonia Fam RN 08/21/20 17:52: N BEDSIDE FOR EVALUATION. N FOUND PLACEMENT AND BROUGHT PATIENT TO NEW FACILITY. DISCHARGED AT 1747 TO THE CARE OF [facility]. IV AND MONITOR REMOVED. Original Note: DEIDRA FROM POISON CONTROL CALLED AT 1130 TO REVIEW LAB RESULTS. PER POISON CONTROL ONCE THE CURRENT BAG OF ACETYLCYSTEINE IS COMPLETE, NO MORE BAGS ARE NEEDED. NOTIFIED.
[2020-08-21] MEDS: Phytonadione (Vit K1) Oral 10 MG/ML AMPUL PO (15:20)
[2020-08-21] MEDS: Docusate Sodium 100 MG CAPSULE PO (15:33)
--- NOTE | 2020-08-21 16:36 | HO.PM.IMPN ---
Subjective Subjective Date of Service: 08/24/20 Interval History: Tylenol toxicity, suicidal ideation Review of Systems Denies any chest pain or shortness of breath or abdominal pain or nausea vomiting or fever or chills. Physical Exam Vital Signs: Vital Signs: Last Vital Signs Temp 98.2 F 08/21/20 15:26 Pulse 96 08/21/20 15:26 Resp 20 08/21/20 15:26 BP 133/94 H 08/21/20 15: Pulse Ox 100 08/21/20 15:26 Body Mass Index 38.5 Physical exam: Cvs: rrr, [id number] , no murmur res: clear to auscultation ,no rhonchii or wheezing abd: no rebound or guarding ,nt, bs present. ext pulses present , no cyanosis neuro: axo3 , nonfocal. Objective Data Current Medications Generic Name Dose Route Start Last Admin Trade Name Freq PRN Reason Stop Dose Admin Diphenhydramine HCl 25 mg 08/20/20 11:44 08/20/20 19:32 Diphenhydramine Hcl 25 Mg Tablet PO 25 mg Q6H PRN Administration anxiety/rash Docusate Sodium 100 mg 08/20/20 11:37 08/21/20 15:33 Docusate Sodium 100 Mg Capsule PO 100 mg DAILY PRN Administration Constipation Ondansetron HCl 4 mg 08/20/20 11:37 Ondansetron Hcl 4 Mg/2 Ml Vial IVPUSH Q8H PRN Nausea and Vomiting Sodium Chloride 3 ml 08/20/20 16:00 08/21/20 12:19 0.9 % Sodium Chloride Flush 3 Ml Syringe IVFLUSH 3 ml QSHIFT CHILO Administration Labs CBC & Chem 7: 08/19/20 22:54 08/21/20 10:17 Assessment and Plan (1) Depression: Status: Acute (2) Overdose by acetaminophen: Status: Acute Assessment and Plan: 20-year-old female with history of depression who presents following intentional overdose with Tylenol Intentional Tylenol overdose Tylenol level in toxic range Patient received -N-acetyl
--- NOTE | 2020-08-21 17:11 | P.DS_ITS ---
DS: Providers Provider Date of Service: 08/23/20 Date of admission: 08/20/20 10:26 Date of discharge: 08/21/20 Primary care physician: [facility] Consults: 08/20/20 02:43 Consult to Crisis Stat Reason for consultation: depression, took tylenol in SI attempt, called 911 Has provider been notified: Yes 08/20/20 11:37 Consult for Sitter Routine Reason for consultation: intentional overdose Has provider been notified: No 08/20/20 11:53 Consult to Gastroenterology Routine Consulting Provider: Noel Kyle Reason for consultation: TYLENOL Toxicity/ allergy to Nacteylcystene Has provider been notified: No 08/21/20 14:22 Consult to Crisis Stat Reason for consultation: SI Has provider been notified: No DS: Diagnosis Discharge Diagnosis (1) Depression: Status: Acute (2) Overdose by acetaminophen: Status: Acute DS: Medications Discharge Medications Home Medications: Home Medications Medication Instructions Recorded Confirmed cetirizine 10 mg PO DAILY 08/20/20 08/20/20 DS: Summary Hospital Course Hospital Course: 20 year old female with history of mild asthma and depression who presented after toxic ingestion. She reports taking a handful of extra strength tylenol just prior to arrival. She and her mother called 911. Following ingestion she vomited a small amount, but there were no tylenol capsules or pill fragments that she could see. Initial tylenol level was 100, other labs unremarkable. Repeat tylenol level 90 and acetylcystine protocol per poison control recommendation. Repeat LFTs also normal. Following administration of 1st bag of acetylcysteine patient began experiencing itching and irritation to her face as well as vomiting. She received a dose of IV Benadryl and Zofran. Poison Control was contacted. This is described as a common reaction with loading d ose. Poison Control recommended holding 2nd infusion for 1 hour and then initiating at lower rate. Patient will be admitted for further management of intentional Tylenol overdose. Hospital Course problem norris section: Patient came with standard toxicity and [place] ideation: Subsequently patient was started on Nacetylcystene . LFTs as well as Tylenol levels PT INR was monitored:seems lft seems fine , tylenol levels seems , also mild elevated inr thought to be related to N- acetylcystene. Discussed with poison control and Gi: Patient was cleared by poison control and GI and subsequently going home. please check liver function , bmp and pt/inr in 1 week with pcp-[facility]. Patient cleared by [facility] in and going to respite as per N. Above management discussed with the patient in detail length she understand and in agreement with the above plan, time spent 50 minutes and 50% time spent on counseling. Significant findings: As above. Procedures performed: None. Treatment and response: As above. Complications: None. Time Spent with Patient Time attestation: Total time spent providing and/or coordinating discharge services: Discharge coordination time: Greater than 30 minutes Physical Exam Vital Signs: Vital Signs: Last Vital Signs Temp 98.2 F 08/21/20 15: Pulse 96 08/21/20 15:26 Resp 20 08/21/20 15: BP 133/94 H 08/21/20 15: Pulse Ox 100 08/21/20 15:26 Body Mass Index 38.5 Physical exam: Constitutional: Not in acute distress Cvs: rrr, [id number] , no murmur res: clear to auscultation ,no rhonchii or wheezing abd: no rebound or guarding ,nt, bs present. ext pulses present , no cyanosis neuro: axo3 , nonfocal. DS: Data Data Completed and Pending Labs on day of discharge: Laboratory Tests 08/19/20 08/19/20 08/19/20 22:54 22:54 22:54 WBC 11.0 H RBC 4.45 Hgb 12.9 Hct 40.9 MCV 91.9 MCH 29.0 MCHC 31.5 RDW 13.3 Plt Count 312 MPV 9.9 Immature Gran % (Auto) 0.3 Neut % (Auto) 58.2 Lymph % (Auto) 30.8 [place] % (Auto) 7.6 Eos % (Auto) 2.7 Baso % (Auto) 0.4 Lymph # (Auto) 3.4 [place] # (Auto) 0.8 Eos # (Auto) 0.3 Baso # (Auto) 0.0 Abs Immat Gran (auto) 0.03 Absolute Neuts (auto) 6.4 Absolute Nucleated RBC 0.000 Nucleated RBC % (auto) 0.0 PT INR Hold Blue Top SEE NOTE Sodium 143 Potassium 3.7 Chloride 108 Carbon Dioxide 25 Anion Gap 14 BUN 16 Creatinine 0.79 Estim Creat Clear Calc 129.3 Estimated GFR > 60 Random Glucose 68 Calcium 8.7 Magnesium 2.2 Total Bilirubin 0.2 Direct Bilirubin < 0.2 AST 18 ALT 12 Alkaline Phosphatase 79 Total Protein 7.2 Albumin 4.4 Urine Test Salicylates < 5.0 L Urine Opiates Screen Acetaminophen 1 Ur Barbiturates Screen Ur Phencyclidine Scrn Ur Amphetamines Screen U Benzodiazepines Scrn Urine Cocaine Screen U Marijuana (THC) Screen COVID-19 ([facility]) COVID-19 [facility] 08/19/20 08/19/20 08/19/20 22:54 22:54 22:54 WBC RBC Hgb Hct MCV MCH MCHC RDW Plt Count MPV Immature Gran % (Auto) Neut % (Auto) Lymph % (Auto) [place] % (Auto) Eos % (Auto) Baso % (Auto) Lymph # (Auto) [place] # (Auto) Eos # (Auto) Baso # (Auto) Abs Immat Gran (auto) Absolute Neuts (auto) Absolute Nucleated RBC Nucleated RBC % (auto) PT INR Hold Blue Top Sodium Potassium Chloride Carbon Dioxide Anion Gap BUN Creatinine Estim Creat Clear Calc Estimated GFR Random Glucose Calcium Magnesium Total Bilirubin Direct Bilirubin AST ALT Alkaline Phosphatase Total Protein Albumin Urine Test NEGATIVE Salicylates Urine Opiates Screen Not Detected Acetaminophen Ur Barbiturates Screen Not Detected Ur Phencyclidine Scrn Not Detected Ur Amphetamines Screen Not Detected U Benzodiazepines Scrn Not Detected Urine Cocaine Screen Not Detected U Marijuana (THC) Screen Not Detected COVID-19 ([facility]) Negative COVID-[employer] See Note 08/20/20 08/20/20 08/20/20 02:03 06:10 17:55 WBC RBC Hgb Hct MCV MCH MCHC RDW Plt Count MPV Immature Gran % (Auto) Neut % (Auto) Lymph % (Auto) [place] % (Auto) Eos % (Auto) Baso % (Auto) Lymph # (Auto) [place] # (Auto) Eos # (Auto) Baso # (Auto) Abs Immat Gran (auto) Absolute Neuts (auto) Absolute Nucleated RBC Nucleated RBC % (auto) PT 15.3 H INR 1.3 H Hold Blue Top Sodium Potassium Chloride Carbon Dioxide Anion Gap BUN Creatinine Estim Creat Clear Calc Estimated GFR Random Glucose Calcium Magnesium Total Bilirubin 0.4 Direct Bilirubin 0.2 AST 16 ALT 12 Alkaline Phosphatase 66 Total Protein 6.0 L Albumin 3.7 Urine Test Salicylates < 5.0 L Urine Opiates Screen Acetaminophen 100 H* 90 H* Ur Barbiturates Screen Ur Phencyclidine Scrn Ur Amphetamines Screen U Benzodiazepines Scrn Urine Cocaine Screen U Marijuana (THC) Screen COVID-19 ([facility]) COVID-19 Clin Com 08/21/20 08/21/20 10:17 10:17 WBC RBC Hgb Hct MCV MCH MCHC RDW Plt Count MPV Immature Gran % (Auto) Neut % (Auto) Lymph % (Auto) [place] % (Auto) Eos % (Auto) Baso % (Auto) Lymph # (Auto) [place] # (Auto) Eos # (Auto) Baso # (Auto) Abs Immat Gran (auto) Absolute Neuts (auto) Absolute Nucleated RBC Nucleated RBC % (auto) PT 16.2 H INR 1.4 H Hold Blue Top Sodium 138 Potassium 3.8 Chloride 107 Carbon Dioxide 24 Anion Gap 11 L BUN 8 L Creatinine 0.59 Estim Creat Clear Calc 173.1 Estimated GFR > 60 Random Glucose 92 D Calcium 8.4 Magnesium Total Bilirubin 0.5 Direct Bilirubin < 0.2 AST 16 ALT 11 Alkaline Phosphatase 66 Total Protein 6.2 L Albumin 3.7 Urine Test Salicylates Urine Opiates Screen Acetaminophen < 1 Ur Barbiturates Screen Ur Phencyclidine Scrn Ur Amphetamines Screen U Benzodiazepines Scrn Urine Cocaine Screen U Marijuana (THC) Screen COVID-19 ([facility]) COVID-19 Clin Com Discharge Plan Discharge Patient Disposition: Home, Self-Care Referrals: [place] [place] [Primary Care Provider] - Discharge Medications: Continued cetirizine 10 mg tablet 10 mg PO DAILY RF: 0 Discharge Orders: Discharge Order (Routine); Ordered 08/21/20 Ordered By: Simona Lama Diet: advance to usual diet Activity on Discharge: As tolerated Stand Alone Forms: Patient Portal Discharge page Visit Report Forms: Patient Portal Discharge page Care Plan Goals: Patient came with standard toxicity and [place] ideation: Subsequently patient was started on Nacetylcystene . LFTs as well as Tylenol levels PT INR was monitored:seems lft seems fine , tylenol levels seems , also mild elevated inr thought to be related to N- acetylcystene. Discussed with poison control and Gi: Patient was cleared by poison control and GI and subsequently going home. please check liver function , bmp and pt/inr in 1 week with pcp-[facility]. Health Concerns: as above. Plan of Treatment: as above. Discharge Date/Time: 08/21/20 17:47
== END 2020-08-21 17:47 | disposition home or self-care (01) | DRG 817 ==
LOC: HO.ED 08-20 07:05 → HO.EDOVER 08-20 10:37 → HO.ICU 08-21 11:05
PROVIDERS: Admitting Provider Internal Medicine; Emergency Provider Emergency Medicine; Visit Provider Internal Medicine
DX: T39.1X2A Poisoning by 4-Aminophenol derivatives, intentional self-harm, initial encounter (principal); R45.851 Suicidal ideations; J45.909 Unspecified asthma, uncomplicated; Y92.9 Unspecified place or not applicable; F32.9 Major depressive disorder, single episode, unspecified; Z20.822 Contact with and (suspected) exposure to COVID-19; Z88.6 Allergy status to analgesic agent; Z79.899 Other long term (current) drug therapy
CPT/HCPCS: 36415; 80048; 80076; 80307; 81025; 83735; 85025; 85610; 87635; 96374; 96375; 99220; 99285; G0480; J0132; J1200; J2405; J3430; Q0163

== ENCOUNTER → 2021-08-06 08:44 | Outpatient (BNVA) | payer MEDICAID, SELFPAY | PROVIDERS: Visit Provider Advanced Practice Midwife | DX: S31.41XD Laceration without foreign body of vagina and vulva, subsequent encounter (principal) | CPT/HCPCS: 99202 ==

== ENCOUNTER 2023-06-16 15:33 | Outpatient (REF) | payer MEDICAID, SELFPAY ==
[2023-06-18 22:59] LABS: TS Negative Control Passed; TS Panel A 0; TS Panel B 0; TS Positive Control Passed; TSpotTB Negative (Negative)
== END 2023-06-16 15:34 | disposition home or self-care (01) ==
LOC: HO.HHCL 15:33
PROVIDERS: Visit Provider Nurse Practitioner
DX: Z11.1 Encounter for screening for respiratory tuberculosis (principal)
CPT/HCPCS: 36415; 86481